=== PATIENT | male | born 1995 | race Caucasian/White ===

== ENCOUNTER → 2019-07-30 | Outpatient (REF) | payer OTHER ==
[2019-08-02 15:07] LABS: CANNABINOID, URINE Positive (Cutoff=20); CARBOXY THC (GC/MS) 11 ng/mL (Cutoff=10); CREATININE, URINE 30.2 mg/dL (20.0-300.0)
== END ==
LOC: M SFHCLACO 17:12
PROVIDERS: ATTEND Physician Assistant
DX: Z79.899 Other long term (current) drug therapy (principal)

== ENCOUNTER → 2019-08-21 | Outpatient (REF) | payer OTHER ==
[2019-08-24 14:08] LABS: AMPHETAMINE, URINE GC/MS >4000 ng/mL (Cutoff=500); CREATININE, URINE 164.6 mg/dL (20.0-300.0); METHAMPHETAMINE, URINE Negative (Cutoff=500)
== END ==
LOC: M SFHCADAM 11:13
PROVIDERS: ATTEND Physician Assistant
DX: Z79.899 Other long term (current) drug therapy (principal)

== ENCOUNTER → 2023-11-28 | Outpatient (REF) | payer OTHER ==
[2023-11-28 17:56] LABS: BASO % 0.4 % (0.0-1.0); EOS # 0.1 10^3/uL (0.0-0.5); EOS % 0.8 % (0.0-3.0); HEMATOCRIT 41.1 % (42.0-52.0); LYMPH # 2.5 10^3/uL (1.5-5.0); MEAN CORPUSCULAR HEMOGLOBIN 30.8 pg (27.0-33.0); MEAN CORPUSCULAR HGB CONC 34.1 g/dl (32.0-36.5); MEAN CORPUSCULAR VOLUME 90.5 fl (80.0-96.0); MONO # 0.9 10^3/uL (0.0-0.8); MONO % 8.5 % (2.0-8.0); NEUTROPHILS # 6.6 10^3/uL (1.5-8.5); NEUTROPHILS % 65.1 % (36.0-66.0); PLATELET COUNT, AUTOMATED 272 10^3/uL (150-450); RED BLOOD COUNT 4.54 10^6/uL (4.30-6.10); WHITE BLOOD COUNT 10.1 10^3/uL (4.0-10.0)
[2023-11-28 18:19] LABS: ALBUMIN 4.3 G/DL (3.2-5.2); ALKALINE PHOSPHATASE 77 U/L (46-116); ALT/SGPT 38 U/L (7.0-40); AST/SGOT 27 U/L (<34); BILIRUBIN,TOTAL 0.3 MG/DL (0.3-1.2); BLOOD UREA NITROGEN 8 MG/DL (9-23); CALCIUM LEVEL 9.8 MG/DL (8.5-10.1); CARBON DIOXIDE LEVEL 29 MMOL/L (20-31); CHLORIDE LEVEL 106 MMOL/L (98-107); CREATININE FOR GFR 0.86 MG/DL (0.70-1.30); GLOMERULAR FILTRATION RATE > 60.0 (>60); GLUCOSE, FASTING 101 MG/DL (60-100); POTASSIUM SERUM 3.9 MMOL/L (3.5-5.1); SODIUM LEVEL 140 MMOL/L (136-145); TOTAL PROTEIN 7.2 G/DL (5.7-8.2)
[2023-11-28 18:22] LABS: FREE T4 1.07 NG/DL (0.89-1.76); THYROID STIMULATING HORMONE 1.276 uIU/ML (0.55-4.78)
== END ==
LOC: M SFHCADAM 15:24
PROVIDERS: ATTEND Physician Assistant
DX: R03.0 Elevated blood-pressure reading, without diagnosis of hypertension (principal); F90.2 Attention-deficit hyperactivity disorder, combined type; F17.290 Nicotine dependence, other tobacco product, uncomplicated; F12.20 Cannabis dependence, uncomplicated

== ENCOUNTER → 2024-01-26 | Outpatient (REF) | payer OTHER | LOC: M SFHCADAM 16:52 | PROVIDERS: ATTEND Physician Assistant | DX: F90.2 Attention-deficit hyperactivity disorder, combined type (principal) ==

== ENCOUNTER → 2024-06-13 | Outpatient (REF) | payer OTHER | LOC: M SFHCDERM 17:45 | PROVIDERS: ATTEND Physician Assistant | DX: D22.62 Melanocytic nevi of left upper limb, including shoulder (principal) ==